=== PATIENT | female | born 1975 | race Caucasian/White ===

== ENCOUNTER 2020-06-22 13:53 | Emergency (ER) | payer OTHER, SELFPAY ==
[2020-06-22 14:05] VITALS: BP 112/76; PULSE 95; RESP 15; TEMP 36.1; O2SAT 99
[2020-06-22 14:15] VITALS: BP 112/76; PULSE 95; RESP 16; TEMP 36.1; O2SAT 99
[2020-06-22 14:46] LABS: Basophils Percent Auto 0.1 % (0.2-1.2); Eosinophils Percent Auto 0.6 % (0-4.4); Hematocrit 38.9 % (37.0-47.0); Hemoglobin 12.8 g/dL (12.0-15.0); Immature Granulocyte Absolute 0.03 K/mm3 (0.00-0.031); Immature Granulocyte Percent A 0.4 % (0-0.5); Lymphocytes Absolute Auto 2.57 K/mm3 (0.9-3.2); Lymphocytes Percent Auto 37.3 % (18.3-44.2); Mean Corpuscular HGB Conc 32.9 g/dl (32-36); Mean Corpuscular Hemoglobin 30.3 pg (26-34); Mean Corpuscular Volume 92.2 fl (80-100); Mean Platelet Volume 11.6 fl (7.4-10.4); Monocytes Absolute Auto 0.4 K/mm3 (0.1-0.6); Monocytes Percent Auto 5.8 % (2.6-8.5); Neutrophils Absolute Auto 3.8 K/mm3 (1.3-6.7); Neutrophils Percent Auto 55.8 % (45.5-73.1); Platelet Count Result 269 k/mm3 (150-375); Red Blood Count 4.22 M/mm3 (4.2-5.4); Red Cell Distribution Width 12.8 % (11.5-14.5); White Blood Count 6.9 K/mm3 (4.5-10.0)
[2020-06-22 15:00] LABS: Alanine Aminotransferase 34 U/L (4-35); Albumin Level 3.9 g/dL (3.5-5.1); Alkaline Phosphatase 100 U/L (38-126); Anion Gap 4 mmol/L (8-16); Aspartate Amino Transferase 39 U/L (14-36); Bilirubin,Total 0.3 mg/dL (0.2-1.3); Blood Urea Nitrogen 16 mg/dL (7-17); Calcium 9.3 mg/dL (8.4-10.2); Carbon Dioxide 33 mmol/L (22-30); Chloride 104 mmol/L (98-107); Estimated CRCL calculation 191 ml/min; Estimated Glomerular Filt Rate > 60; Glucose 160 mg/dL (65-105); Potassium 3.7 mmol/L (3.4-5.0); Sodium 141 mmol/L (137-145)
[2020-06-22 15:31] LABS: Thyroid Stimulating Hormone 0.514 uIU/mL (0.465-4.680)
--- NOTE | 2020-06-22 16:24 | PC.NURSE ---
Attempted to urinate but unable to. Pt given PO fluids to drink.
[2020-06-22 18:26] LABS: Add Urine Microscopic? YES; Appearance Urine Clear (Clear); Bacteria Urine Trace /hpf; Bilirubin Urine Negative (Negative); Blood Urine Negative (Negative); Color Urine Yellow (Yellow); Glucose Urine UA 1+ mg/dL (Negative); Ketones Urine Negative (Negative); Leukocyte Esterase Ur 2+ LEU/UL (Negative); Mucus Urine Rare /lpf; Nitrate Urine Negative (Negative); Protein Urine Negative (Negative); Specific Grav Ur 1.012 (1.001-1.035); Squamous Epithelial Cell Urine Many /hpf (Few); Urobilinogen Urine Negative mg/dL (<2.0)
[2020-06-22 18:37] LABS: Amphetamine Screen Urine Negative (Negative); Barbiturate Screen Urine Negative (Negative); Benzodiazepines Screen Urine Negative (Negative); Cannabinoid Screen Urine Negative (Negative); Cocaine Screen Urine Negative (Negative); Methadone Screen Urine Negative (Negative); Opiate Screen Urine Negative (Negative); Phencyclidine Screen Urine Negative (Negative)
[2020-06-22 20:11] LABS: Ethanol < 10 mg/dL (<10)
--- NOTE | 2020-06-22 20:42 | ED.GENADULT ---
HPI - General Adult General Chief complaint: Psychiatric Symptoms <Stephan Khan PA-C - Last Filed: 06/22/20 21:12> Stated complaint: THINKING ABOUT KILLING MYSELF <Stephan Khan PA-C - Last Filed: 06/22/20 21:12> Time Seen by Provider: 06/22/20 14:53 <Stephan Khan PA-C - Last Filed: 06/22/20 21:12> Source: patient <Stephan Khan PA-C - Last Filed: 06/22/20 21:12> Mode of arrival: ambulatory <RADHA Taveras Last Filed: 06/22/20 21:12> Limitations: no limitations <RADHA Taveras Last Filed: 06/22/20 21:12> History of Present Illness HPI narrative: Patient presents with chief complaint of suicidal ideation that she reports has been worsening today. Patient states that she consider taking more insulin that she should or finding she wants to some pills to overdose on. Patient states 1 week ago she was admitted to [facility] for psychiatric care and she was discharged yesterday. Patient states that she takes Effexor for her depression which is prescribed by her primary care however since December she has had worsening depression due to losing her mother and . Patient denies hearing abnormal voices or seeing things that are not present. Patient denies any intention to harm others. Patient denies alcohol or recreational drug use. Patient denies fever, chills, nausea, vomiting, diarrhea, cough or any other symptoms. Patient states that she used to live in [place] but she is now homeless. <Stephan Khan PA-C - Last Filed: 06/22/20 21:12> Related Data Home medications: Home Medications Medication Instructions Recorded Confirmed atorvastatin 40 mg PO HS 06/22/20 06/23/20 insulin glargine [Cedrickagllynn Chase SUBCUT 06/22/20 U-100 Insulin] lisinopril 2.5 mg PO DAILY 06/22/20 06/23/20 metformin 500 mg PO 06/22/20 venlafaxine 75 mg PO DAILY 06/22/20 06/23/20 <RADHA Taveras Last Filed: 06/22/20 21:12> Allergies/adverse reactions: Allergies Allergy/AdvReac Type Severity Reaction Status Date / Time No Known Allergies Allergy Unknown Verified 06/22/20 14:21 <Stephan Khan PA-C - Last Filed: 06/22/20 21:12> Review of Systems Review of Systems: Narrative: CONSTITUTIONAL: Denies fever, chills, or sweats. EYES: Denies visual changes, redness, or discharge. ENT: Denies rhinorrhea, congestion, sore throat, or otalgia. CARDIOVASCULAR: Denies chest pain, palpitations, or edema. RESPIRATORY: Denies cough or dyspnea. GASTROINTESTINAL: Denies abdominal pain, nausea, vomiting, or diarrhea. GENITOURINARY: Denies dysuria or hematuria. SKIN: Denies rash or itching. MUSCULOSKELETAL: Denies back pain, joint pain, or myalgia. NEUROLOGIC: Denies headache, numbness, dizziness, or weakness. PSYCHIATRIC: Reports depression and suicidal ideation denies homicidal ideation. <Stephan Khan PA-C - Last Filed: 06/22/20 21:12> [facility] Past Medical History Medical History: Medical History (Updated 06/23/20 @ 04:43 by Marie De Leon MD) Diabetes High cholesterol Hypertension <Stephan Khan PA-C - Last Filed: 06/22/20 21:12> Social History Social History: Social History (Updated 06/22/20 @ 20:45 by Stephan Khan PA-C) Smoking status: Unknown if ever smoked Alcohol use details: Denies Other substance usage details: Denies Living arrangements: homeless Gender identity (if verbalized by the patient): Female <Stephan Khan PA-C - Last Filed: 06/22/20 21:12> Exam Narrative: Exam Narrative: GENERAL: Patient appears slightly unkempt but in no acute distress. Patient resting comfortably in the hospital bed prior to examination however she sat up and cooperated with physical exam. HEAD: Normocephalic, atraumatic. EYES: PERRLA and EOMI. CHEST: Clear to auscultation. No respiratory distress. No wheezes rales or rhonchi HEART: Regular rate and rhythm. No murmur heard. Normal peripheral pulses. EXTREMITIES: N
[2020-06-22 20:58] VITALS: BP 109/58; PULSE 74; RESP 18; O2SAT 98
[2020-06-22 22:35] LABS: Glucose Point of Care 86 (65-105)
[2020-06-22 23:32] LABS: SARS-CoV-2 RNA PCR Negative
--- NOTE | 2020-06-23 00:13 | PC.NURSE ---
per crisis personnel, to resume placement in the morning.
[2020-06-23 03:39] VITALS: BP 113/60; PULSE 71; RESP 18; O2SAT 99
--- NOTE | 2020-06-23 04:38 | PC.NURSE ---
called [facility] and scheduled a truck for black pickler at 0630
== END 2020-06-23 06:29 ==
PROVIDERS: Emergency Medicine; Emergency Provider Emergency Medicine; PCP Nurse Practitioner Psychiatric/Mental Health
DX: R45.851 Suicidal ideations (principal); Z20.828 Contact with and (suspected) exposure to other viral communicable diseases; E11.9 Type 2 diabetes mellitus without complications; E78.00 Pure hypercholesterolemia, unspecified; I10 Essential (primary) hypertension; Z59.0 Homelessness; Z79.4 Long term (current) use of insulin
CPT/HCPCS: 36415; 80053; 80307; 81001; 81025; 82948; 84443; 85025; 87635; 99285; C9803; U0003

== ENCOUNTER 2021-06-15 09:24 | Emergency (ER) | payer OTHER, SELFPAY ==
[2021-06-15] VITALS (27 sets, daily range): BP systolic 90–137; BP diastolic 66–90; PULSE 69–88; RESP 10–20; TEMP 36.6; O2SAT 95–100
--- NOTE | ~2021-06-15 | CT_ITS ---
EXAMINATION: CT thoracic spine wo con DATE: 06/15/2021 10:37 INDICATION: Back pain post fall TECHNIQUE: Computed tomography (CT) of the thoracic spine was performed without intravenous contrast. Automated exposure control and iterative reconstruction technique were employed. The dose-length pro duct was 1264.14 mGy-cm. COMPARISON: None FINDINGS: Alignment is normal. Vertebral body heights are normal. No fracture. Multilevel mild disc height loss with minimal degenerative endplate changes throughout the thoracic spine from T2-T3 through T10-T11. Multilevel minimal to mild bilateral thoracic facet osteoarthritis. Central canal and neural foramin a are patent throughout. Likely expiratory phase of imaging with mild dependent atelectasis with smal l region of mild air trapping in the bilateral lower lobes. No evident pericardial or pleural effusio n. Thoracic aorta is normal in caliber. No pathologically enlarged mediastinal or hilar lymphadenopat hy. Visualized paravertebral aspects of the upper abdomen are unremarkable. IMPRESSION: 1. Mild thoracic spondylosis with no fracture or other acute abnormality. Reviewed, dictated and finalized at location A. CIATE PROFESSOR OF LITERACY
--- NOTE | ~2021-06-15 | CT_ITS ---
EXAMINATION: CT cervical spine wo con DATE: 06/15/2021 10:37 INDICATION: Back pain. Fall. TECHNIQUE: Computed tomography (CT) of the cervical spine was performed without intravenous contrast. The dose-length product was 186 mGy-cm. Automated exposure control and iterative reconstruction tech nique were employed. COMPARISON: None FINDINGS: Vertebral body and disc heights are preserved. Odontoid process within normal limits. Skull base is unremarkable. No paraspinal soft tissue abnormality. No evidence for spondylolisthesis. No p erched facet. Craniovertebral junction within normal limits. Lung apices within normal limits. IMPRESSION: 1. No acute abnormality of the cervical spine. Reviewed, dictated and finalized at location B. DRIVER
--- NOTE | ~2021-06-15 | XR_ITS ---
EXAMINATION: XR ankle RT min 3V DATE: 06/15/2021 10:19 INDICATION: Right ankle pain post fall TECHNIQUE: Anteroposterior, oblique, mortise, and lateral views of the right ankle were obtained. COMPARISON: None. FINDINGS: Alignment is normal. No fracture. Joint spaces are normal. Small to moderate-sized plantar calcaneal spur. Soft tissues are unremarkable. IMPRESSION: 1. No acute osseous abnormality. Reviewed, dictated and finalized at location A. ACTIVITIES COORDINATOR
--- NOTE | ~2021-06-15 | XR_ITS ---
EXAMINATION: XR chest 2V EXAM DATE: 06/15/2021 10:27 INDICATION: Weakness. Fall. TECHNIQUE: Frontal and lateral projections of the chest obtained and reviewed. Comparison is made to prior examination from 11/19/2018. FINDINGS: There are cholecystectomy clips. The lungs are clear. There are no pleural effusions. Th e cardiomediastinal silhouette is within normal limits. There is no pneumothorax suspected. The bon es and soft tissues are unremarkable. IMPRESSION: No acute cardiopulmonary findings. Reviewed, dictated and finalized at location A. WEIGHER
--- NOTE | ~2021-06-15 | XR_ITS ---
EXAMINATION: XR ankle LT min 3V DATE: 06/15/2021 10:19 INDICATION: Left ankle pain post fall TECHNIQUE: Anteroposterior, oblique, mortise, and lateral views of the left ankle were obtained. COMPARISON: None. FINDINGS: Alignment is normal. No fracture. Joint spaces are normal. Moderate-sized retrocalcaneal spur and tin y Achilles calcaneal spur. Soft tissues are unremarkable. IMPRESSION: 1. No acute osseous abnormality. Reviewed, dictated and finalized at location A. E INSTALLER HELPER
--- NOTE | 2021-06-15 10:09 | ED.FALL ---
HPI - Fall General Chief Complaint: Fall Stated Complaint: fall Time Seen by Provider: 06/15/21 09:41 Source: patient Mode of arrival: ambulatory Limitations: no limitations History of Present Illness HPI Narrative: This is a 45 year old female that presents to the ER for a fall today. Reports she has history of peripheral neuropathy and her legs gave out on her. Reports generalized weakness. Reports she has history of diabetes mellitus and has been out of her medication for about 6 months. Reports bilaterally ankle pain since the fall and neck and mid back pain. She is unsure if she hit her head. Denies loss of consciousness. Reports a headache. Denies vision changes, vomiting, new numbness or focal weakness. Related Data Home Medications Medication Instructions Recorded Confirmed atorvastatin 40 mg PO HS 06/22/20 06/23/20 insulin glargine [Basaglar KwikPen SUBCUT 06/22/20 U-100 Insulin] lisinopril 2.5 mg PO DAILY 06/22/20 06/23/20 metformin 500 mg PO 06/22/20 venlafaxine 75 mg PO DAILY 06/22/20 06/23/20 Allergies Allergy/AdvReac Type Severity Reaction Status Date / Time No Known Allergies Allergy Unknown Verified 06/22/20 14:21 Review of Systems Review of Systems: CONSTITUTIONAL: Denies fever CARDIOVASCULAR: Denies chest pain RESPIRATORY: Denies dyspnea. GASTROINTESTINAL: Denies abdominal pain, nausea, vomiting MUSCULOSKELETAL: Reports back pain, joint pain, and myalgia. NEUROLOGIC: Reports headache All systems reviewed & are unremarkable except as noted in HPI and below PMFSH Past Medical History Medical History (Updated 06/15/21 @ 12:46 by Urmila Eugene PA-C) Diabetes High cholesterol Hypertension Social History Social History (Updated 06/22/20 @ 20:45 by Stephan Khan PA-C) Smoking status: Unknown if ever smoked Alcohol use details: Denies Other substance usage details: Denies Gender identity (if verbalized by the patient): Female Exam Narrative: GENERAL: Well-appearing, well-nourished, and in no acute distress. HEAD: Normocephalic, atraumatic. EYES: PERRLA and EOMI. ENT: Nares clear, no rhinorrhea or epistaxis. Mucous membranes dry. Oropharynx without tonsillar hypertrophy exudate or other lesions. Bilateral TMs pearly moses non-bulging NECK: Supple. No adenopathy or masses. Tender to palpation of midline cervical spine CHEST: Clear to auscultation. No respiratory distress. No wheezes rales or rhonchi HEART: Regular rate and rhythm. No murmur heard. Normal peripheral pulses. ABDOMEN: Soft, nontender, nondistended, normal active bowel sounds. BACK: Tender to palpation of midline thoracic spine. No midline lumbar spine tenderness EXTREMITIES: Normal range of motion. No edema or obvious deformity. SKIN: Warm, dry, no rash. NEURO: No focal deficits. Alert and oriented x3. Cranial nerves II through XII grossly intact PSYCH: Normal mood and affect Course Consultations Consultation #1: Spoke with primary on-call about work-up who will follow up in clinic. Patient will be re-started on her Basaglar. Date: 06/15/21 Time: 12:00 Vital Signs Vital signs: Vital Signs Temperature 98 F 06/15/21 09:25 Pulse Rate 72 06/15/21 09:25 Respiratory Rate 12 06/15/21 09:25 Blood Pressure 129/90 06/15/21 09:25 Pulse Oximetry 100 06/15/21 09:25 Temperature 98 F 06/15/21 09:25 Pulse Rate 72 06/15/21 09:35 Respiratory Rate 12 06/15/21 09:35 Blood Pressure 129/80 06/15/21 09:35 Pulse Oximetry 100 06/15/21 09:35 MDM - Fall MDM Narrative Medical decision making narrative: Patient presents to the emergency department after a ground-level fall today. Reporting generalized weakness. She reportedly has not been on her diabetes medications for 6 months due to insurance reasons. She currently does not have a primary doctor. Her vitals are stable. She has neurologically intact. CBC without concerning findings. Metabolic panel with hyperglycemia with glucose of 306.
--- NOTE | 2021-06-15 10:10 | ECG_ITS ---
Measurements Intervals Friendly Rate: 69 P: 57 KS: 188 QRS: -26 QRSD: 128 T: 3 QT: 420 QTc: 452 Interpretive Statements SINUS RHYTHM INTRAVENTRICULAR CONDUCTION DELAY CANNOT RULE OUT SEPTAL INFARCT, AGE INDETERMINATE BASELINE ARTIFACT- II, III, AVR, AVF, V1, V3-V6 ABNORMAL ECG Electronically Signed On 06-15-2021 12:53:11 MULTIMEDIA PROGRAMMER by Claudy Thomas D.O.
[2021-06-15 10:23] LABS: Basophils Percent Auto 0.1 % (0.2-1.2); Eosinophils Percent Auto 0.3 % (0-4.4); Hematocrit 40.3 % (37.0-47.0); Hemoglobin 13.4 g/dL (12.0-15.0); Immature Granulocyte Absolute 0.03 K/mm3 (0.00-0.031); Immature Granulocyte Percent A 0.4 % (0-0.5); Lymphocytes Absolute Auto 2.14 K/mm3 (0.9-3.2); Lymphocytes Percent Auto 27.4 % (18.3-44.2); Mean Corpuscular HGB Conc 33.3 g/dl (32-36); Mean Corpuscular Hemoglobin 30.9 pg (26-34); Mean Corpuscular Volume 93.1 fl (80-100); Mean Platelet Volume 10.8 fl (7.4-10.4); Monocytes Absolute Auto 0.4 K/mm3 (0.1-0.6); Monocytes Percent Auto 5.6 % (2.6-8.5); Neutrophils Absolute Auto 5.2 K/mm3 (1.3-6.7); Neutrophils Percent Auto 66.2 % (45.5-73.1); Platelet Count Result 225 k/mm3 (150-375); Red Blood Count 4.33 M/mm3 (4.2-5.4); Red Cell Distribution Width 12.9 % (11.5-14.5); White Blood Count 7.8 K/mm3 (4.5-10.0)
[2021-06-15 10:36] LABS: Alanine Aminotransferase 31 U/L (4-35); Alkaline Phosphatase 92 U/L (38-126); Anion Gap 6 mmol/L (8-16); Aspartate Amino Transferase 27 U/L (14-36); Bilirubin,Total 0.4 mg/dL (0.2-1.3); Blood Urea Nitrogen 13 mg/dL (7-17); Calcium 9.1 mg/dL (8.4-10.2); Carbon Dioxide 27 mmol/L (22-30); Chloride 103 mmol/L (98-107); Estimated CRCL calculation 189 ml/min; Estimated Glomerular Filt Rate > 60; Glucose 306 mg/dL (65-110); Magnesium 1.9 mg/dL (1.6-2.3); Phosphorus 2.8 mg/dL (2.5-4.5); Potassium 4.5 mmol/L (3.4-5.0); Sodium 136 mmol/L (137-145)
[2021-06-15 10:43] LABS: Beta-Hydroxybutyrate/Acetoacetate 0.66 mmol/L (0.02-0.27)
[2021-06-15 11:51] LABS: Add Urine Microscopic? YES; Appearance Urine Cloudy (Clear); Bacteria Urine Trace /hpf; Bilirubin Urine Negative (Negative); Blood Urine Negative (Negative); Budding Yeast Urine Present /hpf; Color Urine Yellow (Yellow); Glucose Urine UA 3+ mg/dL (Negative); Ketones Urine 1+ mg/dL (Negative); Leukocyte Esterase Ur 2+ LEU/UL (Negative); Mucus Urine Rare /lpf; Nitrate Urine Negative (Negative); Protein Urine 1+ mg/dL (Negative); Squamous Epithelial Cell Urine Many /hpf (Few); Urobilinogen Urine Negative mg/dL (<2.0); WBC Urine >75 /hpf
[2021-06-15 12:03] LABS: Specific Grav Ur 1.041 (1.001-1.035)
[2021-06-15 12:36] LABS: Glucose Point of Care 230 mg/dl (65-105)
[2021-06-15 13:38] LABS: Amphetamine Screen Urine Negative (Negative); Barbiturate Screen Urine Negative (Negative); Benzodiazepines Screen Urine Negative (Negative); Cannabinoid Screen Urine Negative (Negative); Cocaine Screen Urine Negative (Negative); Methadone Screen Urine Negative (Negative); Opiate Screen Urine Negative (Negative); Phencyclidine Screen Urine Negative (Negative)
[2021-06-15] MEDS: FLUCONAZOLE 150 MG TABLET PO (13:45)
[2021-06-15 13:50] LABS: Pregnancy On Board Control Positive; Urine Pregnancy Test Negative
--- NOTE | 2021-06-15 14:00 | PC.NURSE ---
pt low risk [place] suicide scale, informed Urmila AJMES no sitter needed. Removed sitter
--- NOTE | 2021-06-15 15:30 | PC.NURSE ---
Awaiting T4 lab results to medically clear pt
[2021-06-15 15:52] LABS: Thyroid Stimulating Hormone Reflex 0.409 uIU/mL (0.465-4.68)
[2021-06-15 17:56] LABS: Free T4 Free Thyroxine Reflex 1.29 ng/dL (0.78-2.19)
[2021-06-15 18:48] LABS: Total Triiodothyronine (T3) 1.11 NG/ML (0.97-1.69)
--- NOTE | 2021-06-15 19:00 | PC.NURSE ---
Attempted to call crisis no answer, informed Celeste CABRAELS, pt is now cleared
--- NOTE | 2021-06-15 19:32 | PC.NURSE ---
Assumed care of pt, pt is alert and upright on stretcher. Discussed POC, pt has no questions or concerns at this time. Pt denies current SI/Plan and there is no sitter at bedside. Low risk per Waqar RN during bedside report.
--- NOTE | 2021-06-15 19:35 | PC.NURSE ---
pt medically cleared, please call crisis at this time.
--- NOTE | 2021-06-15 19:42 | PC.NURSE ---
maria l - [place] - will send someone out to assess pt ciarra. eta 1 hour.
[2021-06-15 20:11] LABS: EDCOVIDSCREEN Negative (Negative)
--- NOTE | 2021-06-15 23:48 | PC.NURSE ---
Spoke to Katei with [facility] in [place] that states there are no beds available for pt at this time.
--- NOTE | 2021-06-16 00:17 | PC.NURSE ---
Received call from [facility], spoke to Roger RN who states they are unable to take pt at this time due to She does not meet criteria, she can be treated out patient in a lower level of care.
[2021-06-16 00:47] VITALS: BP 110/74; PULSE 74; RESP 17; O2SAT 99
--- NOTE | 2021-06-16 00:50 | PC.NURSE ---
Spoke to Brielle CABRALES from [facility] and gave information regarding pt to consider for placement. RN states she will give the info to her assessment team and will call us back w/ an update.
--- NOTE | 2021-06-16 01:35 | PC.NURSE ---
humaira @ [facility] - unable to accept due to max capacity
[2021-06-16 04:08] VITALS: BP 115/79; PULSE 85; RESP 17; O2SAT 98
[2021-06-16 08:52] LABS: Glucose Point of Care 212 mg/dl (65-105)
[2021-06-16] MEDS: NITROFURANTOIN MONOHYD MACROCR 100 MG CAP PO (09:31)
--- NOTE | 2021-06-16 12:49 | PC.NURSE ---
ordered food tray @[id number]
[2021-06-16 12:56] LABS: Glucose Point of Care 399 mg/dl (65-105)
[2021-06-16] MEDS: LOPERAMIDE HCL 2 MG CAPSULE 4 MG PO (12:59)
[2021-06-16 13:39] VITALS: BP 117/68; PULSE 74; RESP 18; TEMP 36.6; O2SAT 98
[2021-06-16] MEDS: IBUPROFEN 600 MG TABLET PO (13:55)
[2021-06-16] MEDS: INSULIN ASPART (*BKC) 100 UNITS/ML SUB-Q (14:07)
[2021-06-16 14:22] VITALS: TEMP 36.6
[2021-06-16 17:37] LABS: SARS-CoV-2 RNA PCR Negative
== END 2021-06-16 14:10 ==
PROVIDERS: Emergency Medicine; Physician Assistant; Emergency Provider Emergency Medicine; PCP Nurse Practitioner Psychiatric/Mental Health
DX: N30.00 Acute cystitis without hematuria (principal); E11.65 Type 2 diabetes mellitus with hyperglycemia; F32.A Depression, unspecified; R45.851 Suicidal ideations; E11.42 Type 2 diabetes mellitus with diabetic polyneuropathy; I10 Essential (primary) hypertension; E78.00 Pure hypercholesterolemia, unspecified; Z20.822 Contact with and (suspected) exposure to COVID-19; Z79.84 Long term (current) use of oral hypoglycemic drugs; Z79.4 Long term (current) use of insulin; M47.814 Spondylosis without myelopathy or radiculopathy, thoracic region; W18.30XA Fall on same level, unspecified, initial encounter; I45.9 Conduction disorder, unspecified; R94.31 Abnormal electrocardiogram [ECG] [EKG]
CPT/HCPCS: 36415; 71046; 72125; 72128; 73610; 80053; 80307; 81001; 81025; 82010; 82948; 83735; 84100; 84439; 84443; 84480; 85025; 87077; 87086; 87088; 87426; 93005; 96374; 99284; A9270; C9803; J0131; J1815; U0003; U0005